=== PATIENT | female | born 1960 | race Caucasian/White ===

== ENCOUNTER 2016-05-17 15:54 | Emergency (ER) | payer OTHER ==
[2016-05-17 16:09] VITALS: BP 111/79
--- NOTE | 2016-05-17 16:31 | UC ---
Back Pain HPI - HPI Summary HPI Summary: The patient comes in today for: 1. Lower back pain: Onset: 5 days. Palliative/provocative: Not moving makes it better. Hot water bottle helps. Ibuprofen helped. Quality: Aching, throbbing. Region: Lower back bilateral, and left leg radiating pain. Severity: 8/10 Time: Constant. Associated symptoms: Fevers: None. Unexplained weight loss: None. Numbness or weakness: None while in the sitting position. Sometimes with movement. Home treatment: Ibuprofen 400 mg 2-3 times a day. Previous disease: She states that she has "tweeked it" before. Last lumbar x-ray: October 2015. No broken bones. PCP: None. Bowel/bladder disfunction: None. Event: She lifts boxes at work (banker boxes). And this "set it all off." * - History of Current Complaint Chief Complaint: UCBackPain Stated Complaint: BACK INJURY Time Seen by Provider: 05/17/16 16:22 Hx Obtained From: Patient Hx Last Menstrual Period: She has had oophorectomy (bilateral) - Allergies/Home Medications Allergies/Adverse Reactions: Allergies Allergy/AdvReac Type Severity Reaction Status Date / Time No Known Allergies Allergy Verified 05/08/13 13:51 PMH/Surg Hx/FS Hx/Imm Hx Previously Healthy: No - Ovarian cancer--2007, and 2013 [facility]. Endocrine History Of: Denies: Diabetes, Thyroid Disease, Hyperthyroidism, Hypothyroidism, Dyslipidemia Cardiovascular History Of: Denies: Cardiac Disorders, Hypertension, Pacemaker/ICD, Myocardial Infarction , Congestive Heart Failure, Atrial Fibrillation, Deep Vein Thrombosis, Bleeding Disorders Respiratory History Of: Denies: COPD, Asthma, Bronchitis, Pneumonia, Pulmonary Embolism GI/ History Of: Reports: Gastroesophageal Reflux - She is not on medications for this. Denies: Ulcer, Gastrointestinal Bleed, Gall Bladder Disease, Kidney Stones, Diverticulitis, Renal Disease, Urosepsis Neurological History Of: Denies: TIA, CVA, Dementia, Seizures, Migraine Psychological History Of: Denies: Anxiety, Depression, Bipolar Disorder, Schizophrenia, Post Traumatic Stress Disorder Cancer History Of: Denies: Lung Cancer, Colorectal Cancer, Breast Cancer, Prostate Cancer, Cervical Cancer Other History Of: Negative For: HIV, Hepatitis B, Hepatitis C, Anticoagulant Therapy - Surgical History Surgical History: Yes Surgery Procedure, Year, and Place: [place] 2008 [facility] [facility] [place] [facility] [place] - Family History Known Family History: Positive: Cardiac Disease, Hypertension - Social History Occupation: Employed Full-time Alcohol Use: None Substance Use Type: None Smoking Status (MU): Never Smoked Tobacco Review of Systems Constitutional: Negative Skin: Negative Eyes: Negative ENT: Negative Respiratory: Negative Cardiovascular: Negative Gastrointestinal: Negative Genitourinary: Negative Musculoskeletal: Arthralgia, Myalgia All Other Systems Reviewed And Are Negative: Yes Physical Exam Triage Information Reviewed: Yes Appearance: Well-Appearing, No Pain Distress - While sitting in the chair, Well- Nourished Vital Signs: Initial Vital Signs Temp 98.5 F 05/17/16 16:03 Pulse 77 05/17/16 16:03 Resp 18 05/17/16 16:03 BP 111/79 05/17/16 16:03 Pulse Ox 99 05/17/16 16:03 Vital Signs Reviewed: Yes Eyes: Positive: Conjunctiva Clear. Negative: Discharge ENT: Positive: Hearing grossly normal, Other: - The patient has bilateral cerumen impactions. But, the canals were not erythematous or edematous.. Negative: Pharynx normal, Pharyngeal erythema, Nasal congestion, Nasal drainage , Tonsillar swelling, Tonsillar exudate Dental: Negative: Gross Decay/Caries @, Dental Fracture @ Neck: Positive: Supple, Nontender, No Lymphadenopathy. Negative: Nuchal Rigidity Respiratory: Positive: Chest non-tender, Lungs clear, No respiratory distress, No accessory muscle use. Negative: Crackles, Wheezing Cardiovascular: Positive: RRR, No Murmur Abdomen Description: Positive: Nontender, No Organomegaly, Soft. Negative: Distended, Guarding Musculoskeletal: Positive: Strength Intact, No Edema, ROM Limited @, Other: - Back: She is slow moving and guards her movement. She is able to get on the exam table with help. She has no SLR bilaterally. DTR are 2+/2 x 2 (patellar). She has limited forward flexion and backward extension. There is also limited bilateral flexion. Neurological: Positive: Alert, Muscle Tone Normal Psychological: Positive: Age Appropriate Behavior, Consolable Skin: Negative: rashes, breakdown Diagnostics - Laboratory Diagnostic Studies Completed/Ordered: Lumbar spine/sacrum: IMPRESSION: 1. NO EVIDENCE FOR FRACTURE. 2. MODERATE OSTEOARTHRITIC CHANGE IN THE FACET JOINTS MOST PROMINENT AT THE L4-L5 AND. L5-S1 LEVELS, UNCHANGED. - Radiology No standard instances Xray Interpretation: No Acute Changes Radiology Interpretation Completed By: Radiologist Back Pain Course/Dx - Course Course Of Treatment: The patient and her female legal support analyst were told of the x- ray reports and my recommedned treatment options. At this time, she is agreeable to take NSAIDS and muscle relaxants and see her primary care provider later this week. - Differential Dx/Diagnosis Provider Diagnoses: Lower back pain/strain. Discharge - Discharge Plan Condition: Stable Disposition: HOME Patient Education Materials: Low Back Strain (ED) [place] [facility] [place] [place] [place]] Meena Danielson PA [Primary Care Provider] - 1 Week (Please see your primary care provider later this week to see how well you are doing. If you don't have a primary care provider that accepts workmen's compensation, please contact the physician referral service to help you find one that does. If you can't get in timely, please you may come back to see us until you can. If you get worse, please be seen sooner by us or the ER.)
[2016-05-17] MEDS ORDERED: Ketorolac INJ* 60 MG/2 ML VIAL IM ONE (16:38)
[2016-05-17] MEDS ORDERED: Cyclobenzaprine TAB* 10 MG PO ONE (16:39)
--- NOTE | 2016-05-17 17:50 | RAD ---
INDICATION: Low back pain, history of ovarian cancer. COMPARISON: Comparison is made with a prior lumbar spine series from February 12, 2015. TECHNIQUE: 5 views of the lumbar spine were obtained including lateral, oblique, AP and a coned-down lateral view of the lumbar sacral junction. FINDINGS: There is a mild lumbar scoliosis convex toward the left side which is unchanged. The vertebra are otherwise in normal alignment. No fracture or significant focal osseous abnormality is appreciated. Disc spaces appear maintained although there are hypertrophic changes within the facet joints which are most prominent at the L4-L5 and L5-S1 levels which appears unchanged. There is mild sclerotic change within the sacroiliac joints which is unchanged. There are numerous surgical clips which project over the lumbar vertebra and sacrum and pelvis. IMPRESSION: 1. NO EVIDENCE FOR FRACTURE. 2. MODERATE OSTEOARTHRITIC CHANGE IN THE FACET JOINTS MOST PROMINENT AT THE L4-L5 AND L5-S1 LEVELS, UNCHANGED.
== END 2016-05-17 18:22 | disposition home or self-care (01) ==
LOC: UCEAST 15:54
DX: S39.012A Strain of muscle, fascia and tendon of lower back, initial encounter (principal); X50.0XXA Overexertion from strenuous movement or load, initial encounter; Y93.9 Activity, unspecified; Y92.9 Unspecified place or not applicable; M47.816 Spondylosis without myelopathy or radiculopathy, lumbar region; Z85.43 Personal history of malignant neoplasm of ovary
CPT/HCPCS: 72110; 96372; 99212; A9270-GY; G0463; J1885

== ENCOUNTER 2018-09-05 13:24 | Emergency (ER) | payer BC ==
[2018-09-05 13:32] VITALS: BP 106/69
--- NOTE | 2018-09-05 13:38 | UC ---
Skin Complaint HPI - HPI Summary HPI Summary: 58 yo female presents with bug bite. She tells me that about 10 days ago she was bitten by something to her left posterior thigh. Over the next 2-3 days the area became swollen, red, and warm. She had a leftover prescription of keflex and took this BID for 4 days and noticed improvement of her symptoms. Her last dose of keflex was on 09/01. Since that time the area has been slowly improving. She states the redness, swelling, warmth, and pain have significantly improved but are still somewhat present. She denies hx of MRSA, fever, chills. - History of Current Complaint Chief Complaint: RITESHkin Stated Complaint: SKIN ISSUE LOWER BACK PAIN Hx Obtained From: Patient Hx Last Menstrual Period: She has had oophorectomy (bilateral) Onset/Duration: Gradual Onset Skin Exposure Onset/Duration: Days Ago Onset Severity: Severe Current Severity: Moderate Pain Intensity: 5 Pain Scale Used: 0-10 Numeric - Allergy/Home Medications Allergies/Adverse Reactions: Allergies Allergy/AdvReac Type Severity Reaction Status Date / Time No Known Allergies Allergy Verified 09/05/18 13:33 PMH/Surg Hx/FS Hx/Imm Hx - Additional Past Medical History Additional PMH: Ovarian cancer Other History Of: Negative For: HIV, Hepatitis B, Hepatitis C, Anticoagulant Therapy - Surgical History Surgical History: Yes Surgery Procedure, Year, and Place: [address], laparoscopic surgery [facility] [place], R shoulder surgery [facility] [place], appendectomy - Family History Known Family History: Positive: Cardiac Disease, Hypertension - Social History Lives: With Family Alcohol Use: None Substance Use Type: None Smoking Status (MU): Never Smoked Tobacco Review of Systems All Other Systems Reviewed And Are Negative: Yes Constitutional: Positive: Negative Skin: Positive: Other - bug bite left thigh Respiratory: Positive: Negative Cardiovascular: Positive: Negative Neurovascular: Positive: Negative Neurological: Positive: Negative Psychological: Positive: Negative Physical Exam - Summary Physical Exam Summary: GENERAL: NAD. WDWN. No pain distress. SKIN: LEFT POSTERIOR THIGH: ~22.0cm length and 10.0cm height of mild erythema and slight warmth with central bug bite. No induration, fluctuance, streaking, edema, or drainage. NTTP. No open wound. NECK: Supple. Nontender. No lymphadenopathy. CHEST: No accessory muscle use. Breathing comfortably and in no distress. CV: Pulses intact. Cap refill <2seconds NEURO: Alert. PSYCH: Age appropriate behavior. Triage Information Reviewed: Yes Vital Signs: Initial Vital Signs Temp 98 F 09/05/18 13:30 Pulse 83 09/05/18 13:30 Resp 18 09/05/18 13:30 BP 106/69 09/05/18 13:30 Pulse Ox 100 09/05/18 13:30 Vital Signs Reviewed: Yes Course/Dx - Course Course Of Treatment: Suspect cellulitis s/p bug bite. The borders of the cellulitis were marked with a purple marking pen. Will place pt on clindamycin and have her monitor the area and apply ice. If symptoms worsen to be rechecked immediately. - Diagnoses Provider Diagnosis: Cellulitis, Bug bite Discharge - Sign-Out/Discharge Documenting (check all that apply): Patient Departure All imaging exams completed and their final reports reviewed: No Studies - Discharge Plan Condition: Stable Disposition: HOME Prescriptions: Clindamycin Cap(NF) [Clindamycin Cap 300 mg Cap(NF)] 300 mg PO TID #21 cap Patient Education Materials: Cellulitis (DC), Insect Bite or Sting (ED) Referrals: Ethan Amado MD [Primary Care Provider] - Additional Instructions: If you develop a fever, shortness of breath, chest pain, new or worsening symptoms - please call your PCP or go to the ED immediately. 1) The area was marked with a purple marker today. Please monitor the area daily to make sure it is improving. 2) If you notice the area getting larger, more red, or swollen - please be rechecked - Billing Disposition and Condition Condition: STABLE Disposition: Home - Attestation Statements Provider Attestation: I was available for consult. This patient was seen by the [facility]. The patient was not presented to, seen by, or examined by me. -Tati
== END 2018-09-05 13:55 | disposition home or self-care (01) ==
LOC: UCEAST 13:24
DX: S70.361A Insect bite (nonvenomous), right thigh, initial encounter (principal); L03.115 Cellulitis of right lower limb; W57.XXXA Bitten or stung by nonvenomous insect and other nonvenomous arthropods, initial encounter; Y92.9 Unspecified place or not applicable
CPT/HCPCS: 99212; G0463

== ENCOUNTER 2019-06-22 13:07 | Emergency (ER) | payer BC ==
[2019-06-22 14:58] LABS: ABS Basophils 0.1 10^3/ul (0-0.2); ABS Eosinophils 0.2 10^3/ul (0-0.6); ABS Lymphocytes 1.3 10^3/ul (1.0-4.8); ABS Monocytes 0.5 10^3/ul (0-0.8); ABS Neutrophils 5.3 10^3/ul (1.5-7.7); Eosinophil % 2.9 %; Hematocrit 43 % (35-47); Hemoglobin 15.6 g/dL (12.0-16.0); Lymphocyte % 17.2 %; Mean Corpuscular HGB Conc 36 g/dL (31-36); Mean Corpuscular Hemoglobin 33 pg (27-31); Mean Corpuscular Volume 92 fL (80-97); Mean Platelet Volume 8.9 fL (7.4-10.4); Nucleated Red Blood Cells % 0.1; Platelet Count 295 10^3/uL (150-450); Red Blood Count 4.73 10^6 /uL (3.70-4.87); Red Cell Distribution Width 12 % (10-15); White Blood Count 7.4 10^3/uL (3.5-10.8)
[2019-06-22 15:01] LABS: INR 1.04 (0.82-1.09)
[2019-06-22 15:12] LABS: Albumin 4.4 g/dL (3.2-5.2); Albumin/Globulin Ratio 1.6 (1-3); BUN/Creatinine Ratio 26.9 (8-20); Calcium 9.6 mg/dL (8.6-10.3); EGFR African American 109.4 (>60); EGFR Non-African American 90.4 (>60); Globulin 2.8 g/dL (2-4); Magnesium 1.7 mg/dL (1.9-2.7); Potassium 3.4 mmol/L (3.5-5.0); Total Bilirubin 0.6 mg/dL (0.2-1.0); Total Protein 7.2 g/dL (6.4-8.9)
--- NOTE | 2019-06-22 15:12 | ED ---
HPI Chest Pain - HPI Summary HPI Summary: Patient is a 59-year-old female with a history of ovarian cancer 3 not currently on chemotherapy presenting to the ED with left-sided chest pain since yesterday. She endorses previous history of left-sided chest pain which has always spontaneously resolved. She has never had a cardiac workup in the past. Her concern today is that the chest pain is not subsiding, continues to endorse a 4/10 aching, tightness to the left chest wall without radiation to the neck or jaw or arm. Denies any SOB. Denies any headache or visual changes. Denies any diaphoresis. No history of PE or DVT. Personal history includes multiple surgeries related to her 3 times ovarian cancer diagnoses. No other significant history. Patient is a nonsmoker, no alcohol use or drug use. Family history is positive for significant cardiac and stroke throughout all family members, most under age 50yo. Pt takes no medications. No allergies. No neuro symptoms, back pain, cough, congestion, fever, sweats, chills, diarrhea or abd pain. No sick contacts. No travel. No unilateral leg swelling, recent surgery or trauma. No OCP use. Surg hx includes TSH - BSO. No chemotherapy since 2008. Followed by [facility]. - History of Current Complaint Chief Complaint: EDChestPainROMI Time Seen by Provider: 06/22/19 13:46 Hx Obtained From: Patient Hx Last Menstrual Period: She has had oophorectomy (bilateral) Onset/Duration: Started Days Ago Timing: Constant Initial Severity: Moderate Current Severity: Moderate Pain Intensity: 5 Pain Scale Used: 0-10 Numeric Chest Pain Location: Left Anterior Chest Pain Radiates: No Character: Dull/Aching Aggravating Factor(s): Nothing Alleviating Factor(s): Nothing Associated Signs and Symptoms: Positive: Chest Pain - Risk Factors Pulmonary Embolism Risk Factors: Malignancy - Allergy/Home Medications Allergies/Adverse Reactions: Allergies Allergy/AdvReac Type Severity Reaction Status Date / Time No Known Allergies Allergy Verified 06/22/19 13:18 Home Medications: Home Medications NK [No Home Medications Reported] 06/22/19 [History Confirmed 06/22/19] PMH/Surg Hx/FS Hx/Imm Hx Previously Healthy: Yes - ovarian CA Endocrine/Hematology History: Denies: Hx Anticoagulant Therapy, Hx Diabetes, Hx Thyroid Disease Cardiovascular History: Denies: Hx Congestive Heart Failure, Hx Deep Vein Thrombosis, Hx Hypertension , Hx Myocardial Infarction, Hx Pacemaker/ICD Respiratory History: Denies: Hx Asthma, Hx Chronic Obstructive Pulmonary Disease (COPD), Hx Lung Cancer, Hx Pneumonia, Hx Pulmonary Embolism GI History: Denies: Hx Gall Bladder Disease, Hx Gastrointestinal Bleed, Hx Ulcer, Hx Urosepsis History: Reports: Other Problems/Disorders - Ovarian CA Denies: Hx Dialysis, Hx Kidney Stones, Hx Renal Disease Musculoskeletal History: Denies: Hx Scoliosis Neurological History: Denies: Hx Dementia, Hx Headaches, Hx Migraine, Hx Seizures, Hx Transient Ischemic Attacks (TIA), Other Neuro Impairments/Disorders Psychiatric History: Denies: Hx Anxiety, Hx Depression, Hx Schizophrenia, Hx Bipolar Disorder - Cancer History Cancer Type, Location and Year: Ovarian, dx 2008 [id number]. skin Hx Chemotherapy: Yes - ovarian cancer 2007-11 - Surgical History Surgery Procedure, Year, and Place: [place] 2009 [facility], laparoscopic surgery [facility] [place], R shoulder surgery [facility] [place], appendectomy - Immunization History Hx Pertussis Vaccination: No Immunizations Up to Date: Yes Infectious Disease History: No Infectious Disease History: Denies: Hx Clostridium Difficile, Hx Hepatitis, Hx Human Immunodeficiency Virus (HIV), Hx of Known/Suspected MRSA, Hx Shingles, Hx Tuberculosis, Hx Known/ Suspected VRE, Hx Known/Suspected VRSA, History Other Infectious Disease, Traveled Outside the [place] in Last 30 Days - Family History Known Family History: Positive: Cardiac Disease, Hypertension - Social History Occupation: Employed Full-time Lives: With Family Alcohol Use: None Hx Substance Use: No Substance Use Type: Reports: None Hx Tobacco Use: No Smoking Status (MU): Never Smoked Tobacco Review of Systems Negative: Fever, Chills, Fatigue, Skin Diaphoresis Positive: Chest Pain. Negative: Palpitations Negative: Shortness Of Breath, Cough Genitourinary: Negative Positive: no symptoms reported, see HPI Musculoskeletal: Negative Neurological/Mental Status: Negative All Other Systems Reviewed And Are Negative: Yes Physical Exam Triage Information Reviewed: Yes Vital Signs On Initial Exam: Initial Vitals Temp Pulse Resp BP Pulse Ox 98.2 F 76 16 134/88 97 06/22/19 13:15 06/22/19 13:15 06/22/19 13:15 06/22/19 13:15 06/22/19 13:15 Vital Signs Reviewed: Yes Appearance: Positive: Well-Appearing, Well-Nourished Skin: Positive: Warm, Skin Color Reflects Adequate Perfusion Head/Face: Positive: Normal Head/Face Inspection Eyes: Positive: Normal, OZIEL, Conjunctiva Clear Neck: Positive: Supple, No Lymphadenopathy Respiratory/Lung Sounds: Positive: Clear to Auscultation, Breath Sounds Present Cardiovascular: Positive: RRR, Pulses are Symmetrical in both Upper and Lower Extremities Musculoskeletal: Positive: Normal, Strength/ROM Intact Neurological: Positive: Speech Normal Psychiatric: Positive: Affect/Mood Appropriate AVPU Assessment: Alert Procedures - Sedation Patient Received Moderate/Deep Sedation with Procedure: No Diagnostics - Vital Signs Vital Signs Temp Pulse Resp BP Pulse Ox 06/22/19 14:54 64 25 128/73 98 06/22/19 14:24 67 16 112/74 96 06/22/19 14:00 63 25 96 06/22/19 13:56 66 23 137/81 96 06/22/19 13:53 64 98 06/22/19 13:15 98.2 F 76 16 134/88 97 - Laboratory Lab Results: Lab Results 06/22/19 06/22/19 Range/Units 14:33 14:33 WBC 7.4 (3.5-10.8) 10^3/uL RBC 4.73 (3.70-4.87) 10^6 /uL Hgb 15.6 (12.0-16.0) g/dL Hct 43 (35-47) % MCV 92 (80-97) fL MCH 33 H (27-31) pg MCHC 36 (31-36) g/dL RDW 12 (10-15) % Plt Count 295 (150-450) 10^3/uL MPV 8.9 (7.4-10.4) fL Neut % (Auto) 71.8 % Lymph % (Auto) 17.2 % Grady % (Auto) 7.1 % Eos % (Auto) 2.9 % Baso % (Auto) 1.0 % Absolute Neuts (auto) 5.3 (1.5-7.7) 10^3/ul Absolute Lymphs (auto) 1.3 (1.0-4.8) 10^3/ul Absolute Monos (auto) 0.5 (0-0.8) 10^3/ul Absolute Eos (auto) 0.2 (0-0.6) 10^3/ul Absolute Basos (auto) 0.1 (0-0.2) 10^3/ul Absolute Nucleated RBC 0.0 10^3/ul Nucleated RBC % 0.1 INR (Anticoag Therapy) 1.04 (0.82-1.09) Result Diagrams: 06/22/19 14:33 06/22/19 14:33 Lab Statement: Any lab studies that have been ordered have been reviewed, and results considered in the medical decision making process. Chest Pain Course/Dx - Course Course Of Treatment: Pt is evaluated for L sided chest pressure and pain since yesterday which remains constant. Denies other symptoms. Patient appears comfortable and in NAD. VS stable. Not tachycardic or tachypnic. Labs obtained: Wells criteria: Mod risk. CTA chest obtained d/t malignancy hx and chest pain. Pt declines aspirin. This shows no evidence of any acute finding. Labs obtained which show a troponin of 0.01. Repeat troponin. Pt states she is feeling well and is OK for DC at this time. She will f/u with PCP and cardiology. Referral given. - Chest Pain Differential Diagnosis/HQI/PQRI: Angina, Chest Wall, Pulmonary Embolism - Critical Care Time Critical Care Statement: Critical care time is provided exclusive of any time spent performing procedures. Discharge ED - Discharge Plan Condition: Stable Disposition: HOME Patient Education Materials: Chest Pain (ED) Referrals: Ethan Amado MD [Primary Care Provider] - Jerald Rangel MD [Medical Doctor] - Additional Instructions: At this point, I recommend you follow up with a chemical engineering teacher for further evaluation. Today, there is no evidence of an acute problem, however this does need a further workup I recommend taking ibuprofen for any discomfort, you may even try some heat to the area If you develop any change of symptoms please return to the ED - Billing Disposition and Condition Condition: STABLE Disposition: Home
[2019-06-22 15:14] LABS: Troponin I 0.01 ng/mL (<0.03)
[2019-06-22] MEDS ORDERED: Iohexol 350* (CONTRAST) 500 ML MDV IV ONE (15:16)
[2019-06-22 15:29] LABS: T4, Total 9.53 mcg/dL (6.09-12.23)
[2019-06-22 15:33] LABS: TSH (Thyroid Stimulating Horm) 1.11 mcIU/mL (0.34-5.60)
[2019-06-22 17:18] VITALS: BP 129/75
== END 2019-06-22 17:18 | disposition home or self-care (01) ==
LOC: ED 13:07
DX: R07.9 Chest pain, unspecified (principal); Z85.43 Personal history of malignant neoplasm of ovary; Z92.21 Personal history of antineoplastic chemotherapy
CPT/HCPCS: 36415; 71275; 80053; 83605; 83735; 84436; 84443; 84484; 85025; 85610; 93005; 99283; Q9967